=== PATIENT | female | born 1985 | race Two or more races ===

== ENCOUNTER → 2024-01-19 11:53 | Outpatient (REF) | payer OTHER, SELFPAY | LOC: HWWDC 11:53 | PROVIDERS: ATTENDING PHYSICIAN Surgery; FAMILY PHYSICIAN Emergency Medicine | DX: Z12.31 Encounter for screening mammogram for malignant neoplasm of breast (principal) | CPT/HCPCS: 77063; 77067 ==

== ENCOUNTER → 2024-04-06 07:29 | Outpatient (REF) | payer OTHER, SELFPAY | LOC: HWRAD 07:29 | PROVIDERS: ATTENDING PHYSICIAN Emergency Medicine | DX: E03.9 Hypothyroidism, unspecified (principal); E80.6 Other disorders of bilirubin metabolism | CPT/HCPCS: 76536; 76700 ==

== ENCOUNTER → 2024-10-04 14:13 | Outpatient (REF) | payer OTHER, SELFPAY | LOC: WDC 14:13 | PROVIDERS: ATTENDING PHYSICIAN Surgery; FAMILY PHYSICIAN Emergency Medicine | DX: R92.2 Inconclusive mammogram (principal) | CPT/HCPCS: 76641 ==

== ENCOUNTER → 2025-03-07 10:48 | Outpatient (REF) | payer OTHER, SELFPAY | LOC: HWWDC 10:48 | PROVIDERS: ATTENDING PHYSICIAN Surgery; FAMILY PHYSICIAN Family Medicine | DX: Z12.31 Encounter for screening mammogram for malignant neoplasm of breast (principal) | CPT/HCPCS: 77063; 77067 ==